=== PATIENT | male | born 1985 | race African-American/Black ===

== ENCOUNTER 2021-09-25 20:48 | Emergency (ER) | payer SELFPAY ==
[2021-09-25] VITALS (9 sets, daily range): BP systolic 124–132; BP diastolic 80–93; PULSE 71–80; RESP 8–21; TEMP 36.7; O2SAT 98–100
--- NOTE | ~2021-09-25 | CT_ITS ---
EXAMINATION: CTA brain carotid DATE: 09/25/2021 23:25 CDT INDICATION: Dizziness and numbness TECHNIQUE: Computed tomographic angiography (CTA) of the head was performed without and with 100 mL O mnipaque-350 intravenous contrast. CTA of the neck was performed with intravenous contrast. The dose- length product was 1631.30 mGy-cm. Maximum intensity projection and volume rendered 3D-reconstruction s were created by the technologist on a separate workstation. Automated exposure control and iterativ e reconstruction technique were employed. COMPARISON: None. FINDINGS: HEAD CTA: No acute intracranial hemorrhage, infarction, mass or mass effect. Normal brain parenchymal volume. Normal payan-white differentiation. No ventriculomegaly or midline shift. Basilar cisterns ar e patent. Paranasal sinuses and mastoids are pneumatized. Intracranial arteries including the [place] are within normal limits without evidence for significant stenosis, occlusion, aneurysm or vascular malformation. NECK CTA: The aorta and great vessels are within normal limits. No significant stenosis, aneurysm or dissection of the common or internal carotid arteries. No cervical lymphadenopathy. Thyroid gland wit hin normal limits. There is 0% stenosis of the proximal right internal carotid artery relative to normal distal artery l umen diameter (NASCET criteria). There is 0% stenosis of the proximal left internal carotid artery re lative to normal distal artery lumen diameter. IMPRESSION: 1: No significant vascular abnormality of the neck or intracranial arteries. 2: No acute intracranial abnormality. Reviewed, dictated and finalized at location A.
--- NOTE | ~2021-09-25 | XR_ITS ---
EXAMINATION: XR chest 2V 09/25/2021 22:29 INDICATION: Chest pain PROCEDURE: 2 view chest COMPARISON: No prior studies for comparison. FINDINGS: The lungs are clear. The cardiomediastinal silhouette is within normal limits. There are no pleural effusions. There is no pneumothorax suspected. IMPRESSION: 1: NO ACUTE CARDIOPULMONARY DISEASE. Reviewed, dictated and finalized at location A.
--- NOTE | 2021-09-25 20:56 | ECG_ITS ---
Measurements Intervals [place] Rate: 70 P: 59 NE: 195 QRS: -15 QRSD: 101 T: 45 QT: 383 QTc: 416 Interpretive Statements SINUS RHYTHM BASELINE WANDER- V1 NORMAL ECG Electronically Signed On 09-25-2021 23:00:36 CDT by Mati Crespo D.O.
[2021-09-25 21:12] LABS: Basophils Percent Auto 0.4 % (0.2-1.2); Eosinophils Percent Auto 0.4 % (0-4.4); Hematocrit 40.1 % (42.0-52.0); Immature Granulocyte Absolute 0.02 K/mm3 (0.00-0.031); Immature Granulocyte Percent A 0.2 % (0-0.5); Lymphocytes Absolute Auto 2.05 K/mm3 (0.9-3.2); Lymphocytes Percent Auto 25.4 % (18.3-44.2); Mean Corpuscular HGB Conc 34.9 g/dl (32-36); Mean Corpuscular Hemoglobin 31.6 pg (26-34); Mean Corpuscular Volume 90.5 fl (80-100); Mean Platelet Volume 10.2 fl (7.4-10.4); Monocytes Absolute Auto 0.8 K/mm3 (0.1-0.6); Monocytes Percent Auto 9.3 % (2.6-8.5); Neutrophils Absolute Auto 5.2 K/mm3 (1.3-6.7); Neutrophils Percent Auto 64.3 % (45.5-73.1); Platelet Count Result 209 k/mm3 (150-375); Red Blood Count 4.43 M/mm3 (4.6-6.20); Red Cell Distribution Width 12.1 % (11.5-14.5); White Blood Count 8.1 K/mm3 (4.5-10.0)
[2021-09-25 21:24] LABS: Alanine Aminotransferase 19 U/L (4-50); Albumin Level 4.6 g/dL (3.5-5.1); Alkaline Phosphatase 90 U/L (38-126); Anion Gap 11 mmol/L (8-16); Aspartate Amino Transferase 26 U/L (17-59); Bilirubin,Total 0.3 mg/dL (0.2-1.3); Blood Urea Nitrogen 9 mg/dL (9-20); Calcium 9.4 mg/dL (8.4-10.2); Carbon Dioxide 26 mmol/L (22-30); Chloride 103 mmol/L (98-107); Estimated CRCL calculation 79 ml/min; Estimated Glomerular Filt Rate > 60; Glucose 152 mg/dL (65-110); Potassium 3.3 mmol/L (3.4-5.0); Sodium 140 mmol/L (137-145)
[2021-09-25] MEDS: MECLIZINE HCL 25 MG TABLET PO (21:39)
[2021-09-25] MEDS: PROCHLORPERAZINE EDISYLATE 10 MG/2 ML VIAL IM (21:39)
[2021-09-25] MEDS: SODIUM CHLORIDE 0.9% IV 1,000 ML 999 ML IV CONT ×2 (21:46→23:27)
[2021-09-25 22:11] LABS: Magnesium 1.7 mg/dL (1.6-2.3)
[2021-09-25 22:24] LABS: Troponin I < 0.012 ng/mL (0.000-0.034)
[2021-09-25 23:34] LABS: Add Urine Microscopic? YES; Appearance Urine Clear (Clear); Bilirubin Urine Negative (Negative); Blood Urine Negative (Negative); Color Urine Straw (Yellow); Glucose Urine UA 1+ mg/dL (Negative); Ketones Urine Negative (Negative); Leukocyte Esterase Ur Negative LEU/UL (Negative); Mucus Urine Rare /lpf; Nitrate Urine Negative (Negative); Protein Urine Negative (Negative); RBC Urine 0-2 /hpf (0-2); Specific Grav Ur 1.029 (1.001-1.035); Urobilinogen Urine Negative mg/dL (<2.0); WBC Urine 0-3 /hpf
[2021-09-26 00:41] LABS: Lactic Acid Reflex 1.8 mmol/L (0.7-2.1)
[2021-09-26 00:53] LABS: Troponin I < 0.012 ng/mL (0.000-0.034)
[2021-09-26 00:53] LABS: Reflex Lactic Acid Yes or No Add Lactic
--- NOTE | 2021-09-26 00:58 | ED.GENADULT ---
HPI - General Adult General Chief complaint: Neuro Symptoms/Deficit Stated complaint: numb hands and feet Time Seen by Provider: 09/25/21 21:14 History of Present Illness HPI narrative: Patient 36-year-old gentleman who presents the emergency department chief complaint of dizziness. Patient reports that he had sudden onset of a lactational type symptoms patient states that it did settle down and then it came back. Patient reports he got tingling over his entire body denies a focal neurological deficit. Patient reports he felt nauseated this happened. Patient reports no change in hearing denies fever denies chills denies cough. Related Data Allergies Allergy/AdvReac Type Severity Reaction Status Date / Time No Known Allergies Allergy Verified 09/25/21 21:38 Review of Systems Review of Systems: A 10 system review of systems was completed on the patient and is negative except for what is stated in the HPI. Nursing and ancillary documentation was reviewed. Exam Narrative: GENERAL: Well-appearing, well-nourished, and in no acute distress. HEAD: Normocephalic, atraumatic. EYES: PERRLA and EOMI. ENT: Nares clear, no rhinorrhea or epistaxis. Mucous membranes moist. NECK: Supple. CHEST: Clear to auscultation. No respiratory distress. HEART: Regular rate and rhythm. No murmur heard. Normal peripheral pulses. ABDOMEN: Soft, nontender, nondistended, normal active bowel sounds. EXTREMITIES: Normal range of motion. No edema. SKIN: Warm, dry, no rash. NEURO: No focal deficits. Alert and oriented x3. PSYCH: Normal mood and affect. Course Course Emergency Course: CT head shows no acute findings CT angio of the head shows no acute findings Vital Signs Vital signs: Vital Signs Temperature 36.7 C 09/25/21 20:51 Pulse Rate 71 09/25/21 20:51 Respiratory Rate 20 09/25/21 20:51 Blood Pressure 132/87 09/25/21 20:51 Pulse Oximetry 100 09/25/21 20:51 Temperature 36.7 C 09/25/21 20:51 Pulse Rate 80 09/25/21 22:00 Respiratory Rate 21 H 09/25/21 22:00 Blood Pressure 124/80 09/25/21 23:27 Pulse Oximetry 98 09/25/21 21:11 Medical Decision Making Vital Signs Vital Signs: Vital Signs Temperature 36.7 C 09/25/21 20:51 Pulse Rate 71 09/25/21 20:51 Respiratory Rate 20 09/25/21 20:51 Blood Pressure 132/87 09/25/21 20:51 Pulse Oximetry 100 09/25/21 20:51 Temperature 36.7 C 09/25/21 20:51 Pulse Rate 80 09/25/21 22:00 Respiratory Rate 21 H 09/25/21 22:00 Blood Pressure 124/80 09/25/21 23:27 Pulse Oximetry 98 09/25/21 21:11 Lab Data Result diagrams: 09/25/21 21:06 09/25/21 21:06 Labs: Lab Results 09/25/21 09/25/21 09/25/21 Range/Units 21:06 21:06 21:45 WBC 8.1 (4.5-10.0) K/mm3 RBC 4.43 L (4.6-6.20) M/mm3 Hgb 14.0 (14.0-18.0) g/dL Hct 40.1 L (42.0-52.0) % MCV 90.5 (80-100) fl MCH 31.6 (26-34) pg MCHC 34.9 (32-36) g/dl RDW 12.1 (11.5-14.5) % Plt Count 209 (150-375) k/mm3 MPV 10.2 (7.4-10.4) fl Immature Gran % (Auto) 0.2 (0-0.5) % Neut % (Auto) 64.3 (45.5-73.1) % Lymph % (Auto) 25.4 (18.3-44.2) % [place] % (Auto) 9.3 H (2.6-8.5) % Eos % (Auto) 0.4 (0-4.4) % Baso % (Auto) 0.4 (0.2-1.2) % Lymph # (Auto) 2.05 (0.9-3.2) K/mm3 [place] # (Auto) 0.8 H (0.1-0.6) K/mm3 Eos # (Auto) 0.0 (0-0.3) K/mm3 Baso # (Auto) 0.0 (0.0-0.1) K/mm3 Abs Immat Gran (auto) 0.02 (0.00-0.031) K/mm3 Absolute Neuts (auto) 5.2 (1.3-6.7) K/mm3 Absolute Nucleated RBC 0.0 (0.0-0.012) K/mm3 Nucleated RBC % 0.0 (0.0-0.2) % Sodium 140 (137-145) mmol/L Potassium 3.3 L (3.4-5.0) mmol/L Chloride 103 (98-107) mmol/L Carbon Dioxide 26 (22-30) mmol/L Anion Gap 11 (8-16) mmol/L BUN 9 (9-20) mg/dL Creatinine 1.00 (0.7-1.3) mg/dL Estim Creat Clear Calc 79 ml/min Estimated GFR > 60 (59 - ) Glucose 152 H (65-110)
[2021-09-26 01:15] VITALS: BP 128/89; PULSE 77; RESP 16; O2SAT 100
== END 2021-09-26 01:20 | disposition home or self-care (01) ==
PROVIDERS: Emergency Medicine; Emergency Provider Emergency Medicine
DX: R42 Dizziness and giddiness (principal)
CPT/HCPCS: 36415; 70496; 70498; 71046; 80053; 81001; 83605; 83735; 84484; 85025; 93005; 96360; 96361; 96372; 99284; A9270; J0780; J7030; Q9967